=== PATIENT | female | born 1960 | race Caucasian/White ===

== ENCOUNTER → 2019-10-26 08:01 | Outpatient (CLI) | payer BC, SELFPAY ==
--- NOTE | 2019-10-26 08:06 | XR_ITS ---
PROCEDURE: XR KNEE LT 4V CLINICAL INDICATION: Knee pain Knee pain COMPARISON: No exams were available for comparison FINDINGS: No fracture or dislocation. No lytic or blastic change. There is normal mineralization. The joint spaces are well-preserved. No significant degenerative/arthritic changes. No erosive changes evident. Other findings:There is a small subcortical lucency along the posterior and central aspect of the patella IMPRESSION: 1. No acute finding. 2. Small subcortical lucency of the central and dorsal aspect of the patella. This could be seen with a dorsal defect of the patella as a normal variant versus an area osteochondrosis. MRI may provide further evaluation if clinically desired.. Dictated by: Tee May MD 10/26/2019 11:02 Electronically signed by Tee May MD in [place] 10/26/2019 11:02
== END ==
PROVIDERS: PCP Internal Medicine; Visit Provider Orthopaedic Surgery
DX: M25.562 Pain in left knee (principal)
CPT/HCPCS: 73564

== ENCOUNTER → 2021-03-16 14:53 | Outpatient (CLI) | payer BC, SELFPAY ==
--- NOTE | 2021-03-16 14:57 | XR_ITS ---
PROCEDURE: XR FOOT WT BEARING LT 3V CLINICAL INDICATION: pain COMPARISON: No exams were available for comparison FINDINGS: Minimal osteoarthritic changes are present at the 1st MTP joint with some minimal soft tissue calcification medial to the head of the 1st metatarsal. No fracture or dislocation. No lytic or blastic change. Other findings:None. 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
== END ==
PROVIDERS: PCP Internal Medicine; Visit Provider Podiatrist
DX: M79.673 Pain in unspecified foot (principal)
CPT/HCPCS: 73630

== ENCOUNTER → 2021-04-03 13:41 | Outpatient (CLI) | payer BC, SELFPAY ==
[2021-04-03 14:03] LABS: Blood Urea Nitrogen 29 mg/dl (7-17); Estimated Glomerular Filt Rate 86 ml/min (>60); GFR (African American) 104 ML/MIN (>60)
--- NOTE | 2021-04-03 14:49 | MR_ITS ---
PROCEDURE INFORMATION: Exam: MR Left Lower Extremity Other Than Joint Without and With Contrast; Foot Exam date and time: 04/03/2021 2:49 PM Age: 60 years old Clinical indication: Pain; Foot; Left; Additional info: Left foot pain, stress fracture. Lateral sided foot pain and swelling. Symptoms x3-4months. No injury or trauma. 10ml prohance given. Lot: [id number] exp: Dec 2022 bun: 29 cre: 0.7 gfr: 86 prior x-ray 03-16-21. TECHNIQUE: Imaging protocol: MR of the Left lower extremity without and with intravenous contrast. Exam focused on the foot. Contrast material: PROHANCE; Contrast volume: 10 ml; Contrast route: IV; COMPARISON: CR XR FOOT WT BEARING LT 3V 03/16/2021 3:00 PM FINDINGS: Limitations: Incomplete fat saturation. Bones/joints: No acute fracture. No dislocation. Tiny cyst within head of first metatarsal. Fluid: Small fluid within anterior and posterior subtalar joint. Trace fluid within tibiotalar joint. LIGAMENTS: Lisfranc ligament: Intact. TENDONS: Flexor tendons of foot: Intact. Tibialis posterior tendon: Intact. Peroneal tendons: Intact. Extensor tendons of foot: Intact. Tibialis anterior tendon: Intact. Tarsal canal (Sinus tarsi): Unremarkable. Tarsal tunnel: Unremarkable. Soft tissues: Unremarkable. Plantar fascia: 0.3 x 0.4 x 0.9 cm intermediate T1, intermediate T2 signal lesion within mid plantar fascia, likely fibroma. IMPRESSION: No fracture.
== END ==
PROVIDERS: Nurse Practitioner; PCP Internal Medicine; Visit Provider Podiatrist
DX: M79.672 Pain in left foot (principal); M76.72 Peroneal tendinitis, left leg; M84.375A Stress fracture, left foot, initial encounter for fracture
CPT/HCPCS: 36415; 73720; 82565; 84520; A9576

== ENCOUNTER 2024-09-03 15:42 | Outpatient (CLI) | payer BC, SELFPAY ==
--- NOTE | 2024-09-03 15:50 | XR_ITS ---
FINAL REPORT CLINICAL HISTORY: foot pain, 4th digit callus COMPARISON: None FINDINGS: RIGHT FOOT 3 views of the right foot were obtained. There is no acute fracture or dislocation. Visualized joint spaces are normally aligned. Note is made of ankylosis of the distal inner phalangeal joints of the fourth and fifth digits. Soft tissues are unremarkable. IMPRESSION: No acute bony abnormality. Reviewed, Interpreted and Dictated by Nilson Laura MD Transcribed by Ada Campoverde Authenticated and [facility]
== END 2024-09-03 23:59 | disposition home or self-care (01) ==
LOC: RAD 15:47
PROVIDERS: PCP Internal Medicine; Visit Provider Podiatrist
DX: L84 Corns and callosities (principal)
CPT/HCPCS: 73630